=== PATIENT | female | born 1990 | race African-American/Black ===

== ENCOUNTER 2022-10-18 15:54 | Emergency (ER) | payer OTHER ==
[~2022-10-18] VITALS: Ht 172.7 cm; Wt 70.3 kg
--- NOTE | 2022-10-18 16:00 | NUR ---
RECEIVED PT 32 YRS FEMALE CAME BY [employer] FOR MEDICALE CLEARIN AND OK TO BOOK CAME WITH GENRALIZED PAIN CAME WITH 2 OFFICER UNIT # [id number] AND OFFICER LUPE # [id number] AND OFFICER CECILIA # [id number]
--- NOTE | 2022-10-18 16:20 | NUR ---
SEEN BY DR. VILLAR
--- NOTE | 2022-10-18 16:25 | NUR ---
PT HERE FOR OK TO BOOK
[2022-10-18] MEDS ORDERED: ACETAMINOPHEN ES 500 MG TABLET ONE (16:29)
[2022-10-18] MEDS ORDERED: IBUPROFEN 600 MG TABLET PO ONE (16:30)
[2022-10-18] MEDS ORDERED: ACETAMINOPHEN ES 500 MG TABLET PO ONE (16:30)
[2022-10-18] MEDS ORDERED: IBUPROFEN 600 MG TABLET ONE (16:30)
--- NOTE | 2022-10-18 18:00 | NUR ---
Noel goncalves in [facility] - 10/18/22 at [address] SCAN
--- NOTE | 2022-10-18 18:04 | NUR ---
PT SIGN PREGNENT WAVER
--- NOTE | 2022-10-18 18:05 | NUR ---
TO CT SCAN
--- NOTE | 2022-10-18 18:24 | NUR ---
BACK FROM CT SCAN
--- NOTE | 2022-10-18 19:13 | NUR ---
Patient discharged to [facility] AND OK TO BOOK n stable condition. Written and verbal after care instructions given. Patient verbalizes understanding of instruction.OK TO BOOK
[2022-10-18 19:27] VITALS: BP 129/77
== END 2022-10-18 19:28 ==
LOC: ER 16:14
DX: S09.90XA Unspecified injury of head, initial encounter (principal); Y04.0XXA Assault by unarmed brawl or fight, initial encounter; Y93.89 Activity, other specified; Y92.89 Other specified places as the place of occurrence of the external cause; Y99.8 Other external cause status
CPT/HCPCS: 70450-TC; 72125-TC